=== PATIENT | female | born 1955 | race Two or more races ===

== ENCOUNTER 2022-04-12 16:28 | Inpatient (IN) | payer MEDICARE ==
[~2022-04-12] VITALS: Ht 167.6 cm; Wt 68.5 kg
[2022-04-12] VITALS: BP 140/74
[2022-04-12 16:35] VITALS: BP 127/44
[2022-04-12] MEDS ORDERED: FURO-152 PO (18:43)
[2022-04-12] MEDS ORDERED: DIVA500T3 PO (18:43)
[2022-04-12] MEDS ORDERED: OXYB5TAB17 PO (18:43)
[2022-04-12 20:00] VITALS: BP 140/74
[2022-04-12 20:12] VITALS: BP 140/74
[2022-04-12] MEDS ORDERED: BISACODYL 10MG SUPP PR PRN (20:30)
[2022-04-12] MEDS: MIRTAZAPINE 15MG TABLET PO SCH (20:49)
[2022-04-12] MEDS ORDERED: MELATONIN 3MG TABLET PO PRN (21:00)
[2022-04-12] MEDS ORDERED: DIVALPROEX SODIUM 500MG DR TABLET PO SCH (22:00)
[2022-04-13 08:00] VITALS: BP 116/41
[2022-04-13] MEDS: SENNOSIDES 8.6MG TABLET PO SCH ×3 (09:00→17:00)
[2022-04-13] MEDS: POLYETHYLENE GLYCOL 3350 (17GM) 1 DOSE PACK PO SCH (09:00)
[2022-04-13] MEDS: LEVETIRACETAM 250MG TABLET PO SCH ×2 (09:26→16:59)
[2022-04-13] MEDS: DIVALPROEX SODIUM 250MG DR TABLET PO SCH (09:26)
[2022-04-13] MEDS: FOLIC ACID 1MG TABLET PO SCH (09:28)
[2022-04-13 09:49] LABS: BASOPHILS % 0.6 % (0.0-2.0); EOSINOPHILS % 1.7 % (0.0-5.0); HEMATOCRIT. 29.3 % (36.0-48.0); LYMPHOCYTES % 20.2 % (20.0-50.0); MEAN CORPUSCULAR HEMOGLOBIN 28.1 pg (28.0-32.0); MEAN CORPUSCULAR VOLUME 91.5 fL (81.0-99.0); MEAN PLATELET VOLUME 6.6 fl (7.4-10.4); MONOCYTES % 10.1 % (2.0-8.0); NEUTROPHILS % 67.4 % (40.0-76.0); PLATELET 321 x1000/uL (130-400); RED CELL DISTRIBUTION WIDTH 16.8 % (11.6-14.6)
[2022-04-13 10:00] LABS: CHLORIDE 104 mEq/L (98-107)
[2022-04-13] MEDS: OXYBUTYNIN CHLORIDE 5MG TABLET PO PRN ×2 (10:58→19:06)
[2022-04-13] MEDS: HEPARIN 5000 UNITS/ML VIAL SUBCUT SCH ×2 (12:19→21:11)
[2022-04-13 19:49] VITALS: BP 137/45
[2022-04-13] MEDS: MIRTAZAPINE 15MG TABLET PO SCH (21:00)
[2022-04-14 06:16] LABS: HEMOGLOBIN. 7.7 g/dL (12.0-16.0); MEAN CORPUSCULAR HEMOGLOBIN 28.1 pg (28.0-32.0); MEAN CORPUSCULAR VOLUME 87.6 fL (81.0-99.0); PLATELET 322 x1000/uL (130-400); RED BLOOD CELL COUNT 2.74 mill/uL (4.2-5.4); RED CELL DISTRIBUTION WIDTH 16.4 % (11.6-14.6)
[2022-04-14 06:28] LABS: CHLORIDE 107 mEq/L (98-107)
[2022-04-14 06:47] LABS: TOTAL IRON BINDING CAPACITY 180 ug/dL (250-450)
[2022-04-14 06:52] LABS: FOLIC ACID (FOLATE) SERUM 14.9 ng/mL (>5.38)
[2022-04-14 08:00] VITALS: BP 118/42
[2022-04-14] MEDS: LEVETIRACETAM 250MG TABLET PO SCH ×2 (09:00→16:47)
[2022-04-14] MEDS: SENNOSIDES 8.6MG TABLET PO SCH ×2 (09:00→16:47)
[2022-04-14] MEDS: POLYETHYLENE GLYCOL 3350 (17GM) 1 DOSE PACK PO SCH (09:00)
[2022-04-14] MEDS: FOLIC ACID 1MG TABLET PO SCH (09:00)
[2022-04-14] MEDS: DIVALPROEX SODIUM 250MG DR TABLET PO SCH (09:00)
[2022-04-14] MEDS: HEPARIN 5000 UNITS/ML VIAL SUBCUT SCH ×2 (09:00→23:11)
[2022-04-14 10:45] LABS: PLATELET ESTIMATE NORMAL
[2022-04-14] MEDS: ASCORBIC ACID 500 MG TABLET PO SCH (12:41)
[2022-04-14] MEDS: FERROUS SULFATE 325MG TABLET PO SCH ×2 (12:44→16:47)
[2022-04-14 20:00] VITALS: BP 137/44
[2022-04-14] MEDS: MIRTAZAPINE 15MG TABLET PO SCH (21:00)
[2022-04-14] MEDS: OXYBUTYNIN CHLORIDE 5MG TABLET PO PRN (23:16)
[2022-04-15 06:49] LABS: HEMOGLOBIN. 8.4 g/dL (12.0-16.0); MEAN CORPUSCULAR HEMOGLOBIN 28.1 pg (28.0-32.0); MEAN CORPUSCULAR VOLUME 87.6 fL (81.0-99.0); MEAN PLATELET VOLUME 6.9 fl (7.4-10.4); PLATELET 335 x1000/uL (130-400); RED BLOOD CELL COUNT 2.97 mill/uL (4.2-5.4); RED CELL DISTRIBUTION WIDTH 16.1 % (11.6-14.6)
[2022-04-15 06:55] LABS: CHLORIDE 109 mEq/L (98-107)
[2022-04-15 07:56] VITALS: BP 120/44
[2022-04-15] MEDS: LEVETIRACETAM 250MG TABLET PO SCH (09:00)
[2022-04-15] MEDS: HEPARIN 5000 UNITS/ML VIAL SUBCUT SCH ×2 (09:00→21:39)
[2022-04-15] MEDS: FERROUS SULFATE 325MG TABLET PO SCH ×2 (09:00→13:25)
[2022-04-15] MEDS: POLYETHYLENE GLYCOL 3350 (17GM) 1 DOSE PACK PO SCH (09:00)
[2022-04-15] MEDS: SENNOSIDES 8.6MG TABLET PO SCH ×2 (09:00→17:00)
[2022-04-15] MEDS: DIVALPROEX SODIUM 250MG DR TABLET PO SCH (09:00)
[2022-04-15] MEDS: FOLIC ACID 1MG TABLET PO SCH (09:00)
[2022-04-15] MEDS: ASCORBIC ACID 500 MG TABLET PO SCH (09:00)
[2022-04-15 11:03] LABS: PLATELET ESTIMATE NORMAL
[2022-04-15] MEDS: TRIAMCINOLONE ACETONIDE 0.1 % OINT 15GM TOP SCH ×2 (12:00→21:41)
[2022-04-15 20:00] VITALS: BP 123/45
[2022-04-15] MEDS ORDERED: SENNOSIDES/DOCUSATE SOD 8.6/50MG TABLET PO PRN (21:00)
[2022-04-15] MEDS: MIRTAZAPINE 15MG TABLET PO SCH (21:00)
[2022-04-15] MEDS: OXYBUTYNIN CHLORIDE 5MG TABLET PO PRN (21:36)
[2022-04-16 06:39] LABS: BASOPHILS % 0.6 % (0.0-2.0); EOSINOPHILS % 2.6 % (0.0-5.0); HEMATOCRIT. 25.5 % (36.0-48.0); HEMOGLOBIN. 8.2 g/dL (12.0-16.0); LYMPHOCYTES % 22.2 % (20.0-50.0); MEAN CORPUSCULAR HEMOGLOBIN 28.7 pg (28.0-32.0); MEAN CORPUSCULAR VOLUME 88.9 fL (81.0-99.0); MEAN PLATELET VOLUME 6.9 fl (7.4-10.4); MONOCYTES % 11.3 % (2.0-8.0); NEUTROPHILS % 63.3 % (40.0-76.0); PLATELET 343 x1000/uL (130-400); RED BLOOD CELL COUNT 2.87 mill/uL (4.2-5.4); RED CELL DISTRIBUTION WIDTH 16.1 % (11.6-14.6)
[2022-04-16 06:51] LABS: CHLORIDE 108 mEq/L (98-107)
[2022-04-16 08:00] VITALS: BP 109/71
[2022-04-16] MEDS: LEVETIRACETAM 250MG TABLET PO SCH ×3 (08:23→17:22)
[2022-04-16] MEDS: DOCUSATE SODIUM 250MG CAPSULE PO SCH (08:24)
[2022-04-16] MEDS: ASCORBIC ACID 500 MG TABLET PO SCH (08:24)
[2022-04-16] MEDS: POLYETHYLENE GLYCOL 3350 (17GM) 1 DOSE PACK PO SCH (08:24)
[2022-04-16] MEDS: FOLIC ACID 1MG TABLET PO SCH (08:24)
[2022-04-16] MEDS: HEPARIN 5000 UNITS/ML VIAL SUBCUT SCH ×2 (08:26→20:39)
[2022-04-16] MEDS: DIVALPROEX SODIUM 250MG DR TABLET PO SCH (08:26)
[2022-04-16] MEDS: FERROUS SULFATE 325MG TABLET PO SCH ×4 (09:00→17:12)
[2022-04-16] MEDS: SENNOSIDES 8.6MG TABLET PO SCH ×2 (09:00→17:00)
[2022-04-16] MEDS: TRIAMCINOLONE ACETONIDE 0.1 % OINT 15GM TOP SCH ×2 (09:00→20:07)
[2022-04-16] MEDS: OXYBUTYNIN CHLORIDE 5MG TABLET PO PRN (17:19)
[2022-04-16] MEDS: MIRTAZAPINE 15MG TABLET PO SCH (20:08)
[2022-04-16 20:17] VITALS: BP 140/48
[2022-04-17 06:02] LABS: BASOPHILS % 0.7 % (0.0-2.0); EOSINOPHILS % 2.8 % (0.0-5.0); HEMATOCRIT. 27.7 % (36.0-48.0); HEMOGLOBIN. 8.8 g/dL (12.0-16.0); LYMPHOCYTES % 22.7 % (20.0-50.0); MEAN CORPUSCULAR HEMOGLOBIN 28.4 pg (28.0-32.0); MEAN CORPUSCULAR VOLUME 89.3 fL (81.0-99.0); MEAN PLATELET VOLUME 6.5 fl (7.4-10.4); MONOCYTES % 11.8 % (2.0-8.0); PLATELET 345 x1000/uL (130-400); RED CELL DISTRIBUTION WIDTH 16.5 % (11.6-14.6)
[2022-04-17 06:20] LABS: CHLORIDE 108 mEq/L (98-107)
[2022-04-17 08:00] VITALS: BP 135/34
[2022-04-17] MEDS: POLYETHYLENE GLYCOL 3350 (17GM) 1 DOSE PACK PO SCH (09:00)
[2022-04-17] MEDS: SENNOSIDES 8.6MG TABLET PO SCH ×2 (09:00→17:03)
[2022-04-17] MEDS: FOLIC ACID 1MG TABLET PO SCH (09:29)
[2022-04-17] MEDS: ASCORBIC ACID 500 MG TABLET PO SCH (09:29)
[2022-04-17] MEDS: DIVALPROEX SODIUM 250MG DR TABLET PO SCH (09:29)
[2022-04-17] MEDS: DOCUSATE SODIUM 250MG CAPSULE PO SCH (09:29)
[2022-04-17] MEDS: LEVETIRACETAM 250MG TABLET PO SCH ×2 (09:29→17:02)
[2022-04-17] MEDS: FERROUS SULFATE 325MG TABLET PO SCH ×3 (09:29→17:02)
[2022-04-17] MEDS: HEPARIN 5000 UNITS/ML VIAL SUBCUT SCH ×2 (09:29→21:00)
[2022-04-17] MEDS: TRIAMCINOLONE ACETONIDE 0.1 % OINT 15GM TOP SCH ×2 (09:30→21:36)
[2022-04-17] MEDS ORDERED: FURO20TA4 PO (10:51)
[2022-04-17] MEDS ORDERED: LEVE1000 PO (10:51)
[2022-04-17] MEDS ORDERED: FOLI-43 PO (12:06)
[2022-04-17] MEDS ORDERED: OXYB5TAB16 PO (12:07)
[2022-04-17] MEDS ORDERED: MIRT7.5T11 PO (12:07)
[2022-04-17] MEDS ORDERED: DIVA500T3 PO (12:08)
[2022-04-17 19:57] VITALS: BP 129/52
[2022-04-17] MEDS: MIRTAZAPINE 15MG TABLET PO SCH (21:00)
[2022-04-18 06:35] LABS: CHLORIDE 108 mEq/L (98-107)
[2022-04-18 06:38] LABS: BASOPHILS % 0.7 % (0.0-2.0); EOSINOPHILS % 2.6 % (0.0-5.0); HEMATOCRIT. 24.8 % (36.0-48.0); MEAN CORPUSCULAR HEMOGLOBIN 28.6 pg (28.0-32.0); MEAN CORPUSCULAR VOLUME 88.4 fL (81.0-99.0); MEAN PLATELET VOLUME 6.5 fl (7.4-10.4); MONOCYTES % 10.5 % (2.0-8.0); NEUTROPHILS % 63.2 % (40.0-76.0); PLATELET 340 x1000/uL (130-400); RED CELL DISTRIBUTION WIDTH 16.5 % (11.6-14.6)
[2022-04-18 08:00] VITALS: BP 110/45
[2022-04-18] MEDS: SENNOSIDES 8.6MG TABLET PO SCH ×2 (08:52→16:24)
[2022-04-18] MEDS: FOLIC ACID 1MG TABLET PO SCH (08:52)
[2022-04-18] MEDS: LEVETIRACETAM 250MG TABLET PO SCH ×2 (08:52→16:24)
[2022-04-18] MEDS: ASCORBIC ACID 500 MG TABLET PO SCH (08:52)
[2022-04-18] MEDS: FERROUS SULFATE 325MG TABLET PO SCH ×3 (08:52→16:24)
[2022-04-18] MEDS: DIVALPROEX SODIUM 250MG DR TABLET PO SCH (08:52)
[2022-04-18] MEDS: HEPARIN 5000 UNITS/ML VIAL SUBCUT SCH ×2 (08:53→22:05)
[2022-04-18] MEDS: DOCUSATE SODIUM 250MG CAPSULE PO SCH (08:53)
[2022-04-18] MEDS: TRIAMCINOLONE ACETONIDE 0.1 % OINT 15GM TOP SCH ×2 (08:57→21:00)
[2022-04-18] MEDS: POLYETHYLENE GLYCOL 3350 (17GM) 1 DOSE PACK PO SCH (08:57)
[2022-04-18] MEDS ORDERED: POLYVINYL ALCOHOL OPHTH DROPS 15ML BOTHEYE PRN (13:00)
[2022-04-18] MEDS ORDERED: GADOTERATE MEGLUMINE 5 MMOL/10 ML VIAL IV ONE (17:10)
[2022-04-18 20:00] VITALS: BP 132/37
[2022-04-18] MEDS: MIRTAZAPINE 15MG TABLET PO SCH (21:00)
[2022-04-19 07:58] LABS: CHLORIDE 107 mEq/L (98-107)
[2022-04-19 08:00] VITALS: BP 123/47
[2022-04-19 08:00] LABS: BASOPHILS % 0.5 % (0.0-2.0); EOSINOPHILS % 1.7 % (0.0-5.0); HEMATOCRIT. 24.5 % (36.0-48.0); LYMPHOCYTES % 18.1 % (20.0-50.0); MEAN CORPUSCULAR VOLUME 88.3 fL (81.0-99.0); MEAN PLATELET VOLUME 6.8 fl (7.4-10.4); MONOCYTES % 10.2 % (2.0-8.0); NEUTROPHILS % 69.5 % (40.0-76.0); PLATELET 331 x1000/uL (130-400); RED BLOOD CELL COUNT 2.78 mill/uL (4.2-5.4); RED CELL DISTRIBUTION WIDTH 16.7 % (11.6-14.6)
[2022-04-19] MEDS: LEVETIRACETAM 250MG TABLET PO SCH ×2 (08:25→17:37)
[2022-04-19] MEDS: FOLIC ACID 1MG TABLET PO SCH (08:25)
[2022-04-19] MEDS: OXYBUTYNIN CHLORIDE 5MG TABLET PO PRN ×3 (08:25→21:27)
[2022-04-19] MEDS: ASCORBIC ACID 500 MG TABLET PO SCH (08:25)
[2022-04-19] MEDS: DOCUSATE SODIUM 250MG CAPSULE PO SCH (08:25)
[2022-04-19] MEDS: FERROUS SULFATE 325MG TABLET PO SCH ×3 (08:25→17:37)
[2022-04-19] MEDS: SENNOSIDES 8.6MG TABLET PO SCH ×2 (08:25→17:37)
[2022-04-19] MEDS: DIVALPROEX SODIUM 250MG DR TABLET PO SCH (08:26)
[2022-04-19] MEDS: HEPARIN 5000 UNITS/ML VIAL SUBCUT SCH ×2 (08:27→21:27)
[2022-04-19] MEDS: POLYETHYLENE GLYCOL 3350 (17GM) 1 DOSE PACK PO SCH (08:27)
[2022-04-19] MEDS: TRIAMCINOLONE ACETONIDE 0.1 % OINT 15GM TOP SCH ×2 (09:00→21:00)
[2022-04-19 20:00] VITALS: BP 115/48
[2022-04-19] MEDS: MIRTAZAPINE 15MG TABLET PO SCH (21:00)
[2022-04-20 07:33] LABS: BASOPHILS % 0.5 % (0.0-2.0); EOSINOPHILS % 1.3 % (0.0-5.0); HEMATOCRIT. 23.6 % (36.0-48.0); HEMOGLOBIN. 7.6 g/dL (12.0-16.0); LYMPHOCYTES % 22.6 % (20.0-50.0); MEAN CORPUSCULAR HEMOGLOBIN 28.4 pg (28.0-32.0); MEAN CORPUSCULAR VOLUME 87.7 fL (81.0-99.0); MEAN PLATELET VOLUME 6.7 fl (7.4-10.4); MONOCYTES % 11.9 % (2.0-8.0); NEUTROPHILS % 63.7 % (40.0-76.0); PLATELET 310 x1000/uL (130-400); RED BLOOD CELL COUNT 2.69 mill/uL (4.2-5.4); RED CELL DISTRIBUTION WIDTH 16.8 % (11.6-14.6)
[2022-04-20 08:00] VITALS: BP 113/45
[2022-04-20 08:06] LABS: CHLORIDE 106 mEq/L (98-107)
[2022-04-20] MEDS: TRIAMCINOLONE ACETONIDE 0.1 % OINT 15GM TOP SCH ×2 (09:00→20:57)
[2022-04-20] MEDS: DOCUSATE SODIUM 250MG CAPSULE PO SCH (09:31)
[2022-04-20] MEDS: FERROUS SULFATE 325MG TABLET PO SCH ×3 (09:31→17:59)
[2022-04-20] MEDS: FOLIC ACID 1MG TABLET PO SCH (09:31)
[2022-04-20] MEDS: POLYETHYLENE GLYCOL 3350 (17GM) 1 DOSE PACK PO SCH (09:32)
[2022-04-20] MEDS: SENNOSIDES 8.6MG TABLET PO SCH ×2 (09:32→17:59)
[2022-04-20] MEDS: DIVALPROEX SODIUM 250MG DR TABLET PO SCH (09:32)
[2022-04-20] MEDS: ASCORBIC ACID 500 MG TABLET PO SCH (09:32)
[2022-04-20] MEDS: LEVETIRACETAM 250MG TABLET PO SCH ×2 (09:32→17:59)
[2022-04-20] MEDS: HEPARIN 5000 UNITS/ML VIAL SUBCUT SCH ×2 (09:33→20:57)
[2022-04-20] MEDS ORDERED: BISACODYL 5MG TABLET PO NR (12:45)
[2022-04-20 14:09] LABS: 25-HYDROXY VITAMIN D3 41 ng/mL (.)
[2022-04-20] MEDS: OXYBUTYNIN CHLORIDE 5MG TABLET PO PRN (17:59)
[2022-04-20 20:00] VITALS: BP 130/47
[2022-04-20] MEDS: MIRTAZAPINE 15MG TABLET PO SCH (20:57)
[2022-04-21 08:00] VITALS: BP 113/37
[2022-04-21] MEDS: TRIAMCINOLONE ACETONIDE 0.1 % OINT 15GM TOP SCH ×2 (09:00→22:52)
[2022-04-21] MEDS: POLYETHYLENE GLYCOL 3350 (17GM) 1 DOSE PACK PO SCH (09:00)
[2022-04-21 09:07] LABS: CHLORIDE 106 mEq/L (98-107)
[2022-04-21 09:09] LABS: BASOPHILS % 0.9 % (0.0-2.0); EOSINOPHILS % 1.2 % (0.0-5.0); HEMATOCRIT. 23.8 % (36.0-48.0); HEMOGLOBIN. 7.7 g/dL (12.0-16.0); LYMPHOCYTES % 20.8 % (20.0-50.0); MEAN CORPUSCULAR HEMOGLOBIN 28.8 pg (28.0-32.0); MEAN CORPUSCULAR VOLUME 88.6 fL (81.0-99.0); MEAN PLATELET VOLUME 7.2 fl (7.4-10.4); MONOCYTES % 10.9 % (2.0-8.0); NEUTROPHILS % 66.2 % (40.0-76.0); PLATELET 284 x1000/uL (130-400); RED BLOOD CELL COUNT 2.68 mill/uL (4.2-5.4); RED CELL DISTRIBUTION WIDTH 16.9 % (11.6-14.6)
[2022-04-21] MEDS: ASCORBIC ACID 500 MG TABLET PO SCH (09:30)
[2022-04-21] MEDS: DIVALPROEX SODIUM 250MG DR TABLET PO SCH (09:30)
[2022-04-21] MEDS: FERROUS SULFATE 325MG TABLET PO SCH ×3 (09:30→17:26)
[2022-04-21] MEDS: FOLIC ACID 1MG TABLET PO SCH (09:30)
[2022-04-21] MEDS: DOCUSATE SODIUM 250MG CAPSULE PO SCH (09:30)
[2022-04-21] MEDS: LEVETIRACETAM 250MG TABLET PO SCH ×2 (09:31→17:26)
[2022-04-21] MEDS: SENNOSIDES 8.6MG TABLET PO SCH ×2 (09:31→17:00)
[2022-04-21] MEDS: HEPARIN 5000 UNITS/ML VIAL SUBCUT SCH ×2 (09:38→22:50)
[2022-04-21 20:00] VITALS: BP 135/40
[2022-04-21] MEDS: MIRTAZAPINE 15MG TABLET PO SCH (22:51)
[2022-04-21] MEDS: OXYBUTYNIN CHLORIDE 5MG TABLET PO PRN (23:10)
[2022-04-22 08:00] VITALS: BP 119/39
[2022-04-22] MEDS: TRIAMCINOLONE ACETONIDE 0.1 % OINT 15GM TOP SCH ×2 (09:00→21:25)
[2022-04-22] MEDS: POLYETHYLENE GLYCOL 3350 (17GM) 1 DOSE PACK PO SCH (09:00)
[2022-04-22] MEDS ORDERED: ERGOCALCIFEROL 50000UNITS CAPSULE PO SCH (09:00)
[2022-04-22] MEDS: SENNOSIDES 8.6MG TABLET PO SCH ×2 (09:00→16:46)
[2022-04-22] MEDS: FERROUS SULFATE 325MG TABLET PO SCH ×3 (09:35→16:45)
[2022-04-22] MEDS: DIVALPROEX SODIUM 250MG DR TABLET PO SCH (09:36)
[2022-04-22] MEDS: ASCORBIC ACID 500 MG TABLET PO SCH (09:36)
[2022-04-22] MEDS: DOCUSATE SODIUM 250MG CAPSULE PO SCH (09:36)
[2022-04-22] MEDS: LEVETIRACETAM 250MG TABLET PO SCH ×2 (09:36→16:45)
[2022-04-22] MEDS: FOLIC ACID 1MG TABLET PO SCH (09:36)
[2022-04-22] MEDS: HEPARIN 5000 UNITS/ML VIAL SUBCUT SCH ×2 (09:37→21:25)
[2022-04-22] MEDS: OXYBUTYNIN CHLORIDE 5MG TABLET PO PRN (09:47)
[2022-04-22 20:15] VITALS: BP 127/53
[2022-04-22] MEDS: MIRTAZAPINE 15MG TABLET PO SCH (21:00)
[2022-04-23 08:00] VITALS: BP 118/40
[2022-04-23] MEDS: POLYETHYLENE GLYCOL 3350 (17GM) 1 DOSE PACK PO SCH (09:00)
[2022-04-23] MEDS: TRIAMCINOLONE ACETONIDE 0.1 % OINT 15GM TOP SCH ×2 (09:00→21:37)
[2022-04-23] MEDS: FERROUS SULFATE 325MG TABLET PO SCH ×3 (10:01→17:06)
[2022-04-23] MEDS: SENNOSIDES 8.6MG TABLET PO SCH ×2 (10:01→17:07)
[2022-04-23] MEDS: DIVALPROEX SODIUM 250MG DR TABLET PO SCH (10:02)
[2022-04-23] MEDS: ASCORBIC ACID 500 MG TABLET PO SCH (10:02)
[2022-04-23] MEDS: DOCUSATE SODIUM 250MG CAPSULE PO SCH (10:02)
[2022-04-23] MEDS: FOLIC ACID 1MG TABLET PO SCH (10:02)
[2022-04-23] MEDS: OXYBUTYNIN CHLORIDE 5MG TABLET PO PRN ×3 (10:03→21:46)
[2022-04-23] MEDS: HEPARIN 5000 UNITS/ML VIAL SUBCUT SCH ×2 (10:04→21:41)
[2022-04-23] MEDS: LEVETIRACETAM 250MG TABLET PO SCH ×2 (10:04→17:07)
[2022-04-23] MEDS: MIRTAZAPINE 15MG TABLET PO SCH (21:00)
[2022-04-24 07:10] LABS: BASOPHILS % 0.6 % (0.0-2.0); CHLORIDE 104 mEq/L (98-107); EOSINOPHILS % 0.8 % (0.0-5.0); HEMATOCRIT. 25.5 % (36.0-48.0); HEMOGLOBIN. 8.1 g/dL (12.0-16.0); LYMPHOCYTES % 14.2 % (20.0-50.0); MEAN CORPUSCULAR HEMOGLOBIN 28.5 pg (28.0-32.0); MEAN CORPUSCULAR VOLUME 89.4 fL (81.0-99.0); MEAN PLATELET VOLUME 7.4 fl (7.4-10.4); MONOCYTES % 8.8 % (2.0-8.0); NEUTROPHILS % 75.6 % (40.0-76.0); PLATELET 251 x1000/uL (130-400); RED BLOOD CELL COUNT 2.85 mill/uL (4.2-5.4); RED CELL DISTRIBUTION WIDTH 17.6 % (11.6-14.6)
[2022-04-24 08:00] VITALS: BP 100/45
[2022-04-24] MEDS: OXYBUTYNIN CHLORIDE 5MG TABLET PO PRN ×2 (08:26→21:48)
[2022-04-24] MEDS: ASCORBIC ACID 500 MG TABLET PO SCH (08:26)
[2022-04-24] MEDS: FOLIC ACID 1MG TABLET PO SCH (08:26)
[2022-04-24] MEDS: DOCUSATE SODIUM 250MG CAPSULE PO SCH (08:26)
[2022-04-24] MEDS: POLYETHYLENE GLYCOL 3350 (17GM) 1 DOSE PACK PO SCH (08:27)
[2022-04-24] MEDS: LEVETIRACETAM 250MG TABLET PO SCH ×2 (08:27→16:41)
[2022-04-24] MEDS: FERROUS SULFATE 325MG TABLET PO SCH ×3 (08:27→16:41)
[2022-04-24] MEDS: SENNOSIDES 8.6MG TABLET PO SCH ×2 (08:27→16:41)
[2022-04-24] MEDS: DIVALPROEX SODIUM 250MG DR TABLET PO SCH (08:27)
[2022-04-24] MEDS: TRIAMCINOLONE ACETONIDE 0.1 % OINT 15GM TOP SCH ×2 (08:28→21:47)
[2022-04-24] MEDS: HEPARIN 5000 UNITS/ML VIAL SUBCUT SCH ×2 (08:28→21:48)
[2022-04-24 20:00] VITALS: BP 127/55
[2022-04-24] MEDS: MIRTAZAPINE 15MG TABLET PO SCH (21:00)
[2022-04-25 06:46] LABS: BASOPHILS % 0.4 % (0.0-2.0); HEMATOCRIT. 24.1 % (36.0-48.0); HEMOGLOBIN. 7.8 g/dL (12.0-16.0); LYMPHOCYTES % 20.1 % (20.0-50.0); MEAN CORPUSCULAR HEMOGLOBIN 28.9 pg (28.0-32.0); MEAN CORPUSCULAR VOLUME 88.6 fL (81.0-99.0); MEAN PLATELET VOLUME 7.2 fl (7.4-10.4); NEUTROPHILS % 68.5 % (40.0-76.0); PLATELET 232 x1000/uL (130-400); RED BLOOD CELL COUNT 2.72 mill/uL (4.2-5.4)
[2022-04-25 08:00] VITALS: BP 101/38
[2022-04-25] MEDS: HEPARIN 5000 UNITS/ML VIAL SUBCUT SCH (10:15)
[2022-04-25] MEDS: ASCORBIC ACID 500 MG TABLET PO SCH (10:15)
[2022-04-25] MEDS: LEVETIRACETAM 250MG TABLET PO SCH ×2 (10:15→17:35)
[2022-04-25] MEDS: FOLIC ACID 1MG TABLET PO SCH (10:15)
[2022-04-25] MEDS: FERROUS SULFATE 325MG TABLET PO SCH ×3 (10:15→17:35)
[2022-04-25] MEDS: SENNOSIDES 8.6MG TABLET PO SCH ×2 (10:15→17:00)
[2022-04-25] MEDS: TRIAMCINOLONE ACETONIDE 0.1 % OINT 15GM TOP SCH (10:15)
[2022-04-25] MEDS: DIVALPROEX SODIUM 250MG DR TABLET PO SCH (10:15)
[2022-04-25] MEDS: DOCUSATE SODIUM 250MG CAPSULE PO SCH (10:15)
[2022-04-25] MEDS: POLYETHYLENE GLYCOL 3350 (17GM) 1 DOSE PACK PO SCH (10:15)
[2022-04-25] MEDS ORDERED: DOCU250C14 PO (12:45)
[2022-04-25] MEDS ORDERED: DIVA250T4 PO (12:45)
[2022-04-25] MEDS ORDERED: KEPP250 PO (12:45)
[2022-04-25] MEDS ORDERED: POLY17PO3 PO (12:45)
[2022-04-25] MEDS ORDERED: FOLI-43 PO (12:45)
[2022-04-25 14:18] VITALS: BP 128/75
== END 2022-04-25 19:00 | disposition home health service (06) | DRG 74 ==
PROVIDERS: ADMIT Physical Medicine & Rehabilitation Spinal Cord Injury Medicine; ATTEND Family Medicine Adult Medicine
DX: G62.9 Polyneuropathy, unspecified (principal); E46 Unspecified protein-calorie malnutrition; G82.20 Paraplegia, unspecified; J90 Pleural effusion, not elsewhere classified; J98.11 Atelectasis; R29.6 Repeated falls; D49.6 Neoplasm of unspecified behavior of brain; G40.909 Epilepsy, unspecified, not intractable, without status epilepticus; I87.8 Other specified disorders of veins; R53.81 Other malaise; K59.09 Other constipation; M47.816 Spondylosis without myelopathy or radiculopathy, lumbar region; G89.29 Other chronic pain; D53.9 Nutritional anemia, unspecified; N32.81 Overactive bladder; I10 Essential (primary) hypertension; I87.2 Venous insufficiency (chronic) (peripheral); F41.9 Anxiety disorder, unspecified; D50.9 Iron deficiency anemia, unspecified; D63.8 Anemia in other chronic diseases classified elsewhere; I73.9 Peripheral vascular disease, unspecified; L25.9 Unspecified contact dermatitis, unspecified cause; K57.90 Diverticulosis of intestine, part unspecified, without perforation or abscess without bleeding; E55.9 Vitamin D deficiency, unspecified; G47.00 Insomnia, unspecified; M47.812 Spondylosis without myelopathy or radiculopathy, cervical region; Z88.0 Allergy status to penicillin; Z91.041 Radiographic dye allergy status; Z92.21 Personal history of antineoplastic chemotherapy; Z92.3 Personal history of irradiation; Z88.8 Allergy status to other drugs, medicaments and biological substances; Z79.899 Other long term (current) drug therapy; Z86.718 Personal history of other venous thrombosis and embolism; Z91.81 History of falling; Z82.49 Family history of ischemic heart disease and other diseases of the circulatory system; Z68.24 Body mass index [BMI] 24.0-24.9, adult; R26.9 Unspecified abnormalities of gait and mobility; H04.129 Dry eye syndrome of unspecified lacrimal gland
CPT/HCPCS: 36415; 72148; 74176; 76700; 80048; 80053; 82270; 82306; 82607; 82728; 82746; 83540; 83550; 84134; 84443; 85025; 85044; 92523; 93970; 97110; 97112; 97116; 97150; 97162; 97166; 97530; 97535; A9577; J1644